=== PATIENT | female | born 1980 | race African-American/Black ===

== ENCOUNTER 2016-11-06 18:21 | Emergency (ER) | payer OTHER ==
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
--- NOTE | ~2016-11-06 | CR230 ---
[facility] A Service of [facility] & [facility] RADIOLOGY TEXT RESULTS PATIENT: MAGGY MORGAN LOCATION: [facility] : 79 UNIT #: [id number] AGE: [address]: Luz Maria Chan SEX: F ORDER DR: [id number] [facility] [address] [place], [place] [address] [id number] E MR#: [id number] Acc #: [id number] NAME: MAGGY MORGAN : 1980 SEX: F STUDY DATE/TIME: 11/06/2016 17:49 UNIT: [facility] ROOM: STUDY DESCRIPTION: CR Shoulder Min 2 View Rt Attending Physician: Luz Maria Chan P.A.-C. Ordering Physician: Luz Maria Chan P.A.-C. Primary Care Physician: Stephanie Scott M.D. MEDICAL IMAGING REPORT This report is preliminary unless electronic signature is present EXAM Right shoulder 3 views 11/06/2016. HISTORY Right shoulder pain status post fall 11/06/2016. FINDINGS AP view with internal and external rotation of the right shoulder girdle shows satisfactory relationship of the humeral head and glenoid fossa. The joint space is normal. There is no identifiable fracture or dislocation or bony destructive process about the shoulder girdle anatomy. The acromioclavicular joint is normal. There is no radiopaque foreign body in the region. IMPRESSION Normal right shoulder. Dictated by... Wero Mercado M.D. THIS IS AN ELECTRONICALLY VERIFIED REPORT Wero Mercado M.D. at 11/07/2016 2:14 PM KRT/gz TD: 11/07/2016 08:59 JOB #: [id number] MEDICAL IMAGING REPORT COPY
--- NOTE | ~2016-11-06 | CR151 ---
[facility] A Service of [facility] & [facility] RADIOLOGY TEXT RESULTS PATIENT: MAGGY MORGAN LOCATION: [facility] : 79 UNIT #: [id number] AGE: [address]: Luz Maria Chan SEX: F ORDER DR: [id number] [facility] [address] [place], [place] [address] [id number] E MR#: [id number] Acc #: [id number] NAME: MAGGY MORGAN : 1980 SEX: F STUDY DATE/TIME: 11/06/2016 18:00 UNIT: [facility] ROOM: STUDY DESCRIPTION: CR Hip Min 2 Views Rt Attending Physician: Luz Maria Chan P.A.-C. Ordering Physician: Luz Maria Chan P.A.-C. Primary Care Physician: Stephanie Scott M.D. MEDICAL IMAGING REPORT This report is preliminary unless electronic signature is present EXAM Right hip series. INDICATIONS Right hip pain after fall today. PROCEDURE Frontal view of the pelvis and a lateral view of the right hip. COMPARISON None. FINDINGS No acute fracture or dislocation. IMPRESSION No acute findings. Dictated by... Brian Hummel M.D. THIS IS AN ELECTRONICALLY VERIFIED REPORT Brian Hummel M.D. at 11/09/2016 7:01 AM MORENITA/rudy TD: 11/07/2016 08:56 JOB #: [id number] MEDICAL IMAGING REPORT COPY
--- NOTE | ~2016-11-06 | CR21 ---
[facility] A Service of [facility] & [facility] RADIOLOGY TEXT RESULTS PATIENT: MAGGY MORGAN LOCATION: [facility] : 79 UNIT #: [id number] AGE: [address]: Luz Maria Chan SEX: F ORDER DR: [id number] [facility] [address] [place], [place] [address] [id number] E MR#: [id number] Acc #: [id number] NAME: MAGGY MORGAN : 1980 SEX: F STUDY DATE/TIME: 11/06/2016 17:54 UNIT: [facility] ROOM: STUDY DESCRIPTION: CR Ankle Min 3 Views Rt Attending Physician: Luz Maria Chan P.A.-C. Ordering Physician: Luz Maria Chan P.A.-C. Primary Care Physician: Stephanie Scott M.D. MEDICAL IMAGING REPORT This report is preliminary unless electronic signature is present EXAM Right ankle 3 views 11/06/2016. HISTORY Right ankle pain status post fall today. FINDINGS AP, lateral, and oblique projections of the right ankle show satisfactory integrity of the joint mortise with a smooth articular surface. There is no identifiable fracture, dislocation, or radiopaque foreign body. IMPRESSION Normal right ankle. Dictated by... Wero Mercado M.D. THIS IS AN ELECTRONICALLY VERIFIED REPORT Wero Mercado M.D. at 11/07/2016 2:14 PM KRT/gz TD: 11/07/2016 09:00 JOB #: [id number] MEDICAL IMAGING REPORT COPY
[~2016-11-06 18:21] MED LIST: ALLER-TEC D 5-1 EACH PO; ALPRAZOLAM ER1 MG PO; AZITHROMYCIN250 MG PO; BENADRYL25 M1 PO; HYDROCODONE/APA1 T16 PO; KEPPRA500 M2 PO; MOTRIN600 M2 PO; RISPERDAL2 MG PO
== END 2016-11-06 18:30 | disposition home or self-care (01) ==
LOC: CFTX 18:21
DX: S46.911A Strain of unspecified muscle, fascia and tendon at shoulder and upper arm level, right arm, initial encounter (principal); S76.011A Strain of muscle, fascia and tendon of right hip, initial encounter; F31.9 Bipolar disorder, unspecified; Z88.8 Allergy status to other drugs, medicaments and biological substances; W01.0XXA Fall on same level from slipping, tripping and stumbling without subsequent striking against object, initial encounter; Y92.9 Unspecified place or not applicable
CPT/HCPCS: 73030; 73502; 73562; 73610; 99284

== ENCOUNTER 2016-11-20 21:52 | Emergency (ER) | payer OTHER ==
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
[2016-11-22 11:26] LABS: POC - CREATININE 1.01 mg/dL (0.44-1.03); POC - GFR >60.0 mL/min (>60)
== END 2016-11-21 01:47 | disposition home or self-care (01) ==
LOC: CED 21:52
PROVIDERS: Emergency Medicine
DX: S39.012A Strain of muscle, fascia and tendon of lower back, initial encounter (principal); S20.211A Contusion of right front wall of thorax, initial encounter; S40.011A Contusion of right shoulder, initial encounter; F41.9 Anxiety disorder, unspecified; Z98.51 Tubal ligation status; Z88.8 Allergy status to other drugs, medicaments and biological substances; V43.62XA Car passenger injured in collision with other type car in traffic accident, initial encounter
CPT/HCPCS: 70450; 71010; 72040; 72072; 72100; 73030; 74177; 82565; 96372; 99284; J1885; Q9967

== ENCOUNTER 2017-03-09 22:54 | Emergency (ER) | payer OTHER ==
--- NOTE | ~2017-03-09 | CR21 ---
[facility] A Service of [facility] & [facility] RADIOLOGY TEXT RESULTS PATIENT: MAGGY MORGAN LOCATION: [facility] : 78 UNIT #: [id number] AGE: [address]: Arabella Berry APRN SEX: F ORDER DR: [id number] [facility] [address] [place], [place] [address] [id number] E MR#: [id number] Acc #: [id number] NAME: MAGGY MORGAN : 1980 SEX: F STUDY DATE/TIME: 03/09/2017 23:59 UNIT: [facility] ROOM: STUDY DESCRIPTION: CR Ankle Min 3 Views Rt Attending Physician: Arabella Berry A.P.R.N. Ordering Physician: Arabella Berry A.P.R.N. Primary Care Physician: Primary Care Physician No MEDICAL IMAGING REPORT This report is preliminary unless electronic signature is present EXAM Right ankle INDICATION Right ankle pain for 2 days after twisting ankle. COMPARISON 11/06/2016 FINDINGS AP, lateral, and oblique projections of the ankle show satisfactory integrity of the joint mortise with a smooth articular surface. There is no identifiable fracture, dislocation, or radiopaque foreign body. IMPRESSION Normal ankle. Dictated by... Satya Mckay M.D. THIS IS AN ELECTRONICALLY VERIFIED REPORT Satya Mckay M.D. at 03/10/2017 9:52 PM FELICIANO/loreta TD: 03/10/2017 01:49 JOB #: [id number] MEDICAL IMAGING REPORT Page 1 of 1 COPY
== END 2017-03-10 00:55 | disposition home or self-care (01) ==
LOC: CFTX 22:54 → CED 22:54 → CFTX 23:28
DX: S93.491A Sprain of other ligament of right ankle, initial encounter (principal); R56.9 Unspecified convulsions; Z79.899 Other long term (current) drug therapy; X50.1XXA Overexertion from prolonged static or awkward postures, initial encounter; Y92.69 Other specified industrial and construction area as the place of occurrence of the external cause
CPT/HCPCS: 29540; 73610; 99283